=== PATIENT | male | born 1980 | race Caucasian/White ===

== ENCOUNTER 2016-11-19 07:36 | Emergency (ER) | payer SELFPAY ==
[~2016-11-19] VITALS: Ht 177.8 cm; Wt 100.0 kg
[2016-11-19 07:56] LABS: GLUCOSE,POINT OF CARE 74 MG/DL (70-110)
[2016-11-19 08:29] LABS: ANION GAP 18 mmol/L (8-16); BASOPHILS % (AUTO) 0.5 % (0.0-2.0); CALCIUM, TOTAL 8.3 mg/dL (8.8-10.5); CARBON DIOXIDE 22 mmol/L (22-29); CHLORIDE 104 mmol/L (98-107); CREATININE 0.99 mg/dL (0.60-1.30); EOSINOPHILS % (AUTO) 0.5 % (1.0-6.0); GLOMERULAR FILTR. RATE CALC > 60 mL/min (>60); HEMATOCRIT 49.7 % (41-53); HEMOGLOBIN 16.4 g/dL (13.5-17.5); LYMPHOCYTES # (AUTO) 2.6 K/uL (1.0-4.8); LYMPHOCYTES % (AUTO) 39.6 % (22.0-44.0); MEAN CORPUSCULAR HEMOGLOBIN 28.7 pg (26.0-34.0); MEAN CORPUSCULAR VOLUME 87 fL (80-100); MONOCYTES # (AUTO) 0.6 K/uL (0.1-1.0); NEUTROPHILS # (AUTO) 3.3 K/uL (1.8-7.7); NEUTROPHILS % (AUTO) 50.4 % (40.0-70.0); PLATELET COUNT (AUTO) 203 K/uL (150-450); POTASSIUM 3.8 mmol/L (3.5-5.1); RED BLOOD CELL COUNT(AUTO) 5.72 MIL/uL (4.50-5.90); RED CELL DISTRIBUTION WIDTH 12.8 % (11.5-14.5); SODIUM SERUM 144 mmol/L (136-145); UREA NITROGEN, BLOOD 8 mg/dL (7-18); WHITE BLOOD COUNT (AUTO) 6.5 K/uL (4.5-11.0)
[2016-11-19 08:34] LABS: ALANINE AMINOTRANSFERASE 134 U/L (12-78); ALBUMIN 4.3 g/dL (3.4-5.0); ASPARTATE AMINOTRANSFERASE 105 U/L (15-37); BILIRUBIN,TOTAL 0.6 mg/dL (0.1-1.0); TOTAL PROTEIN, SERUM 8.4 g/dL (6.4-8.2)
[2016-11-19] MEDS ORDERED: DiphenhydrAMINE HCL 50 MG/ML VIAL IM ONE (09:15)
[2016-11-19] MEDS ORDERED: HALOPERIDOL LACTATE 5 MG/ML VIAL IM ONE (09:15)
[2016-11-19] MEDS ORDERED: LORazepam 2 MG/ML VIAL IM ONE (09:15)
[2016-11-19 20:51] VITALS: BP 134/76
== END 2016-11-19 21:14 | disposition home or self-care (01) ==
LOC: EMS 07:38 → EEVIPCON 07:38 → EMS 21:14
DX: S09.90XA Unspecified injury of head, initial encounter (principal); T51.0X1A Toxic effect of ethanol, accidental (unintentional), initial encounter; R45.851 Suicidal ideations
CPT/HCPCS: 36415; 70450; 80053; 80307; 82962; 85025; 96372; 99291; G0480; J1200; J1630; J2060

== ENCOUNTER 2018-01-19 18:52 | Emergency (ER) | payer OTHER ==
[~2018-01-19] VITALS: Ht 182.9 cm; Wt 106.8 kg
[2018-01-19 19:12] LABS: GLUCOSE,POINT OF CARE 87 MG/DL (70-110)
[2018-01-19 21:22] LABS: EOSINOPHILS % (AUTO) 7.6 % (1.0-6.0); HEMATOCRIT 40.8 % (41-53); HEMOGLOBIN 13.8 g/dL (13.5-17.5); LYMPHOCYTES # (AUTO) 2.4 K/uL (1.0-4.8); LYMPHOCYTES % (AUTO) 39.6 % (22.0-44.0); MEAN CORPUSCULAR HEMOGLOBIN 31.3 pg (26.0-34.0); MEAN CORPUSCULAR HGB CONC 33.9 G/dL (31.0-37.0); MEAN CORPUSCULAR VOLUME 92 fL (80-100); MONOCYTES # (AUTO) 0.7 K/uL (0.1-1.0); NEUTROPHILS # (AUTO) 2.3 K/uL (1.8-7.7); NEUTROPHILS % (AUTO) 37.8 % (40.0-70.0); PLATELET COUNT (AUTO) 224 K/uL (150-450); RED BLOOD CELL COUNT(AUTO) 4.42 MIL/uL (4.50-5.90); RED CELL DISTRIBUTION WIDTH 14.8 % (11.5-14.5)
[2018-01-19] MEDS ORDERED: LIB10 PO (21:23)
[2018-01-19] MEDS ORDERED: GABA-529 PO (21:23)
[2018-01-19 21:33] LABS: ANION GAP 11 mmol/L (8-16); CALCIUM, TOTAL 8.5 mg/dL (8.8-10.5); CARBON DIOXIDE 27 mmol/L (22-29); CHLORIDE 107 mmol/L (98-107); CREATININE 0.84 mg/dL (0.60-1.30); GLOMERULAR FILTR. RATE CALC > 60 mL/min (>60); GLUCOSE,RANDOM 114 mg/dL (70-110); POTASSIUM 3.4 mmol/L (3.5-5.1); SODIUM SERUM 145 mmol/L (136-145); UREA NITROGEN, BLOOD 9 mg/dL (7-18)
[2018-01-19 21:38] LABS: ALANINE AMINOTRANSFERASE 124 U/L (12-78); ALBUMIN 3.4 g/dL (3.4-5.0); ALKALINE PHOSPHATASE 98 U/L (46-116); ASPARTATE AMINOTRANSFERASE 179 U/L (15-37); BILIRUBIN,TOTAL 0.6 mg/dL (0.1-1.0); TOTAL PROTEIN, SERUM 7.3 g/dL (6.4-8.2)
[2018-01-20] MEDS ORDERED: ChlordiazePOXIDE HCL 25 MG CAPSULE PO ONE (05:15)
[2018-01-20 08:00] VITALS: BP 132/74
== END 2018-01-20 08:05 | disposition home or self-care (01) ==
LOC: EMS 18:53
DX: F10.129 Alcohol abuse with intoxication, unspecified (principal); R74.0 Nonspecific elevation of levels of transaminase and lactic acid dehydrogenase [LDH]; R73.09 Other abnormal glucose; F32.9 Major depressive disorder, single episode, unspecified
CPT/HCPCS: 36415; 70450; 80053; 82962; 85025; 99285; G0480

== ENCOUNTER 2019-10-16 14:40 | Inpatient (IN) | payer MEDICAID ==
[~2019-10-16] VITALS: Ht 177.8 cm; Wt 132.4 kg
[~2019-10-16 14:40] MED LIST: DIVA-76 PO; GABA-529 PO
[2019-10-16 16:00] VITALS: BP 122/84
[2019-10-16] MEDS ORDERED: ZOLPIDEM TARTRATE 10 MG TABLET PO PRN (16:45)
[2019-10-16] MEDS ORDERED: MAG HYDROX/AL HYDROX/SIMETH ES 30 ML SUSPENSION UDCUP PO PRN (16:45)
[2019-10-16] MEDS ORDERED: TUBERCULIN, PURIFIED PROTEIN DERIVATIVE 5 TU/0.1 ML SYRINGE ID ONE (16:45)
[2019-10-16] MEDS ORDERED: DIAZEPAM 10 MG TABLET PO ONE (16:45)
[2019-10-16] MEDS ORDERED: CYANOCOBALAMIN 1,000 MCG/ML VIAL IM ONE (16:45)
[2019-10-16] MEDS ORDERED: LOPERAMIDE HCL 2 MG CAPSULE PO PRN (16:45)
[2019-10-16] MEDS ORDERED: MAGNESIUM HYDROXIDE SUSPENSION 30 ML UDCUP PO PRN (16:45)
[2019-10-16 17:00] VITALS: BP 128/82
[2019-10-16 18:00] VITALS: BP 126/77
[2019-10-16] MEDS: THIAMINE HCL 100 MG TABLET PO SCH (18:08)
[2019-10-16 19:00] VITALS: BP 122/68
[2019-10-16 20:00] VITALS: BP 111/61
[2019-10-16] MEDS: GABAPENTIN 300 MG CAPSULE PO SCH (20:37)
[2019-10-16] MEDS: DIVALPROEX SODIUM 500 MG ER TABLET PO SCH (20:37)
[2019-10-16] MEDS: BACLOFEN 10 MG TABLET PO SCH (20:37)
[2019-10-17] VITALS (9 sets, daily range): BP systolic 112–137; BP diastolic 62–86
[2019-10-17] MEDS: DIAZEPAM 10 MG TABLET PO PRN ×3 (00:51→10:19)
[2019-10-17 07:44] LABS: BASOPHILS % (AUTO) 0.9 % (0.0-2.0); EOSINOPHILS % (AUTO) 5.3 % (1.0-6.0); HEMATOCRIT 42.7 % (41-53); HEMOGLOBIN 14.8 g/dL (13.5-17.5); LYMPHOCYTES # (AUTO) 2.2 K/uL (1.0-4.8); LYMPHOCYTES % (AUTO) 31.7 % (22.0-44.0); MEAN CORPUSCULAR HEMOGLOBIN 28.9 pg (26.0-34.0); MEAN CORPUSCULAR HGB CONC 34.6 G/dL (31.0-37.0); MEAN CORPUSCULAR VOLUME 84 fL (80-100); MONOCYTES # (AUTO) 0.6 K/uL (0.1-1.0); MONOCYTES % (AUTO) 9.1 % (2.0-9.0); NEUTROPHILS # (AUTO) 3.7 K/uL (1.8-7.7); PLATELET COUNT (AUTO) 153 K/uL (150-450); RED BLOOD CELL COUNT(AUTO) 5.11 MIL/uL (4.50-5.90); RED CELL DISTRIBUTION WIDTH 12.7 % (11.5-14.5)
[2019-10-17 08:02] LABS: HEMOGLOBIN A1C 5.9 % (4.5-6.2)
[2019-10-17 08:12] LABS: ALANINE AMINOTRANSFERASE 67 U/L (12-78); ALBUMIN 3.7 g/dL (3.4-5.0); ALKALINE PHOSPHATASE 84 U/L (46-116); ANION GAP 5 mmol/L (8-16); ASPARTATE AMINOTRANSFERASE 75 U/L (15-37); BILIRUBIN,TOTAL 1.3 mg/dL (0.1-1.0); CALCIUM, TOTAL 9.1 mg/dL (8.8-10.5); CARBON DIOXIDE 32 mmol/L (22-29); CHLORIDE 99 mmol/L (98-107); CHOL/HDL RATIO 4.5 (4.2-7.3); CHOLESTEROL 154 mg/dL (131-200); CREATININE 0.99 mg/dL (0.60-1.30); FREE T4 (FREE THYROXINE) 1.02 ng/dL (0.76-1.46); GLOMERULAR FILTR. RATE CALC > 60 mL/min (>60); GLUCOSE,RANDOM 105 mg/dL (70-110); HDL CHOLESTEROL 34 mg/dL (40-60); LDL CHOL (CALC.) 80 mg/dL (0-130); POTASSIUM 4.1 mmol/L (3.5-5.1); SODIUM SERUM 136 mmol/L (136-145); THYROID STIMULATING HORMONE 2.41 uIU/mL (0.36-3.74); TOTAL PROTEIN, SERUM 7.9 g/dL (6.4-8.2); TRIGLYCERIDES 201 mg/dL (15-150); UREA NITROGEN, BLOOD 14 mg/dL (7-18)
[2019-10-17] MEDS: NALTREXONE HCL 50 MG TABLET PO SCH (08:31)
[2019-10-17] MEDS: AmLODIPine BESYLATE 10 MG TABLET PO SCH (08:34)
[2019-10-17] MEDS: GABAPENTIN 300 MG CAPSULE PO SCH ×3 (08:34→16:21)
[2019-10-17] MEDS: DIAZEPAM 10 MG TABLET PO SCH ×4 (08:35→20:11)
[2019-10-17] MEDS: FOLIC ACID 1 MG TABLET PO SCH (08:35)
[2019-10-17] MEDS: BACLOFEN 10 MG TABLET PO SCH ×3 (08:35→16:20)
[2019-10-17] MEDS: LISINOPRIL 10 MG TABLET PO SCH (08:35)
[2019-10-17] MEDS: MULTIVITAMINS WITH MINERALS, THERAPEUTIC TABLET PO SCH (08:35)
[2019-10-17] MEDS: THIAMINE HCL 100 MG TABLET PO SCH ×2 (08:35→16:21)
[2019-10-17] MEDS: OLANZapine 5 MG RAPDIS TABLET PO PRN ×2 (08:35→13:46)
[2019-10-17] MEDS: HydrOXYzine PAMOATE 50 MG CAPSULE PO PRN (08:40)
[2019-10-17] MEDS: PROMETHAZINE HCL 25 MG TABLET PO PRN ×2 (08:40→13:46)
[2019-10-17] MEDS ORDERED: DULoxetine HCL 20 MG CAPSULE PO SCH (09:00)
[2019-10-17] MEDS: IBUPROFEN 600 MG TABLET PO PRN (13:45)
[2019-10-17] MEDS: DIVALPROEX SODIUM 500 MG ER TABLET PO SCH (20:11)
[2019-10-17] MEDS: GABAPENTIN 400 MG CAPSULE PO SCH (20:11)
[2019-10-18] VITALS (8 sets, daily range): BP systolic 127–141; BP diastolic 77–98
[2019-10-18] MEDS: IBUPROFEN 600 MG TABLET PO PRN ×2 (03:55→14:16)
[2019-10-18] MEDS: DIAZEPAM 10 MG TABLET PO PRN (04:04)
[2019-10-18] MEDS: GABAPENTIN 400 MG CAPSULE PO SCH ×4 (08:19→20:41)
[2019-10-18] MEDS: LISINOPRIL 10 MG TABLET PO SCH (08:19)
[2019-10-18] MEDS: HydrOXYzine PAMOATE 50 MG CAPSULE PO PRN ×2 (08:19→19:11)
[2019-10-18] MEDS: MULTIVITAMINS WITH MINERALS, THERAPEUTIC TABLET PO SCH (08:19)
[2019-10-18] MEDS: DIAZEPAM 10 MG TABLET PO SCH ×4 (08:19→20:41)
[2019-10-18] MEDS: AmLODIPine BESYLATE 10 MG TABLET PO SCH (08:19)
[2019-10-18] MEDS: THIAMINE HCL 100 MG TABLET PO SCH ×2 (08:19→16:43)
[2019-10-18] MEDS: OLANZapine 5 MG RAPDIS TABLET PO PRN ×2 (08:19→19:11)
[2019-10-18] MEDS: BACLOFEN 10 MG TABLET PO SCH ×3 (08:20→16:43)
[2019-10-18] MEDS: FOLIC ACID 1 MG TABLET PO SCH (08:20)
[2019-10-18] MEDS: NALTREXONE HCL 50 MG TABLET PO SCH (08:21)
[2019-10-18] MEDS ORDERED: PARoxetine HCL 20 MG TABLET PO SCH (09:00)
[2019-10-18] MEDS: NICOTINE 21 MG/24 HOUR PATCH TD SCH (10:57)
[2019-10-18] MEDS: GuaiFENesin/D-METHORPHAN [SUGAR-FREE] 200-20MG/10 ML SYRUP UDCUP PO PRN ×2 (13:02→13:03)
[2019-10-18] MEDS: DIVALPROEX SODIUM 500 MG ER TABLET PO SCH (20:41)
[2019-10-19 06:16] VITALS: BP 130/75
[2019-10-19] MEDS ORDERED: DIAZEPAM 5 MG TABLET PO PRN (07:00)
[2019-10-19 08:08] VITALS: BP 151/104
[2019-10-19] MEDS: BACLOFEN 10 MG TABLET PO SCH ×3 (08:12→16:47)
[2019-10-19] MEDS: FOLIC ACID 1 MG TABLET PO SCH (08:12)
[2019-10-19] MEDS: AmLODIPine BESYLATE 10 MG TABLET PO SCH (08:13)
[2019-10-19] MEDS: GABAPENTIN 400 MG CAPSULE PO SCH ×3 (08:13→16:47)
[2019-10-19] MEDS: PARoxetine HCL 20 MG TABLET PO SCH (08:14)
[2019-10-19] MEDS: MULTIVITAMINS WITH MINERALS, THERAPEUTIC TABLET PO SCH (08:14)
[2019-10-19] MEDS: NALTREXONE HCL 50 MG TABLET PO SCH (08:14)
[2019-10-19] MEDS: LISINOPRIL 10 MG TABLET PO SCH (08:15)
[2019-10-19] MEDS: THIAMINE HCL 100 MG TABLET PO SCH ×2 (08:15→16:47)
[2019-10-19] MEDS: NICOTINE 21 MG/24 HOUR PATCH TD SCH (08:18)
[2019-10-19] MEDS: DIAZEPAM 5 MG TABLET PO SCH ×4 (08:18→20:10)
[2019-10-19 08:48] VITALS: BP 132/70
[2019-10-19] MEDS ORDERED: DIAZEPAM 10 MG TABLET ONE (09:21)
[2019-10-19] MEDS: GuaiFENesin/D-METHORPHAN [SUGAR-FREE] 200-20MG/10 ML SYRUP UDCUP PO PRN (09:47)
[2019-10-19] MEDS: IBUPROFEN 600 MG TABLET PO PRN ×2 (09:54→16:22)
[2019-10-19 09:58] VITALS: BP 152/86
[2019-10-19 16:18] VITALS: BP 149/92
[2019-10-19 16:44] VITALS: BP 149/92
[2019-10-19] MEDS ORDERED: LOPERAMIDE HCL 2 MG CAPSULE PO PRN (16:45)
[2019-10-19] MEDS: DIVALPROEX SODIUM 500 MG ER TABLET PO SCH (20:09)
[2019-10-19] MEDS: GABAPENTIN 300 MG CAPSULE PO SCH (20:09)
[2019-10-19] MEDS: MIRTAZAPINE 15 MG TABLET PO SCH (20:09)
[2019-10-19] MEDS: TOPIRAMATE 25 MG TABLET PO SCH (20:10)
[2019-10-20] VITALS (7 sets, daily range): BP systolic 134–170; BP diastolic 89–98
[2019-10-20] MEDS: PROMETHAZINE HCL 25 MG TABLET PO PRN (04:38)
[2019-10-20] MEDS: MULTIVITAMINS WITH MINERALS, THERAPEUTIC TABLET PO SCH (08:52)
[2019-10-20] MEDS: LISINOPRIL 10 MG TABLET PO SCH (08:52)
[2019-10-20] MEDS: THIAMINE HCL 100 MG TABLET PO SCH ×2 (08:53→16:21)
[2019-10-20] MEDS: AmLODIPine BESYLATE 10 MG TABLET PO SCH (08:53)
[2019-10-20] MEDS: DIAZEPAM 5 MG TABLET PO PRN ×2 (08:53→18:02)
[2019-10-20] MEDS: NALTREXONE HCL 50 MG TABLET PO SCH (08:54)
[2019-10-20] MEDS: FOLIC ACID 1 MG TABLET PO SCH (08:54)
[2019-10-20] MEDS: TOPIRAMATE 25 MG TABLET PO SCH ×4 (08:54→20:21)
[2019-10-20] MEDS: GABAPENTIN 300 MG CAPSULE PO SCH ×4 (08:54→20:21)
[2019-10-20] MEDS: NICOTINE 21 MG/24 HOUR PATCH TD SCH (08:55)
[2019-10-20] MEDS: PARoxetine HCL 20 MG TABLET PO SCH (08:56)
[2019-10-20] MEDS: BACLOFEN 10 MG TABLET PO SCH ×3 (09:02→16:20)
[2019-10-20] MEDS: IBUPROFEN 600 MG TABLET PO PRN ×2 (09:02→20:51)
[2019-10-20] MEDS: MIRTAZAPINE 15 MG TABLET PO SCH (20:20)
[2019-10-20] MEDS: DIVALPROEX SODIUM 500 MG ER TABLET PO SCH (20:21)
[2019-10-21 05:25] VITALS: BP 137/93
[2019-10-21] MEDS: BACLOFEN 10 MG TABLET PO SCH ×3 (08:15→16:34)
[2019-10-21] MEDS: TOPIRAMATE 25 MG TABLET PO SCH ×4 (08:20→20:20)
[2019-10-21] MEDS: HydrOXYzine PAMOATE 50 MG CAPSULE PO PRN ×2 (08:20→16:33)
[2019-10-21] MEDS: GABAPENTIN 300 MG CAPSULE PO SCH ×4 (08:20→20:21)
[2019-10-21] MEDS: OLANZapine 5 MG RAPDIS TABLET PO PRN (08:20)
[2019-10-21] MEDS: NICOTINE 21 MG/24 HOUR PATCH TD SCH (08:22)
[2019-10-21] MEDS: MULTIVITAMINS WITH MINERALS, THERAPEUTIC TABLET PO SCH (08:22)
[2019-10-21] MEDS: THIAMINE HCL 100 MG TABLET PO SCH ×2 (08:22→16:33)
[2019-10-21] MEDS: NALTREXONE HCL 50 MG TABLET PO SCH (08:23)
[2019-10-21] MEDS: AmLODIPine BESYLATE 10 MG TABLET PO SCH (08:24)
[2019-10-21] MEDS: PARoxetine HCL 20 MG TABLET PO SCH (08:24)
[2019-10-21] MEDS: FOLIC ACID 1 MG TABLET PO SCH (08:25)
[2019-10-21] MEDS: LISINOPRIL 10 MG TABLET PO SCH (08:25)
[2019-10-21] MEDS: IBUPROFEN 600 MG TABLET PO PRN ×2 (08:41→16:33)
[2019-10-21 08:42] VITALS: BP 151/105
[2019-10-21 09:00] VITALS: BP 151/100
[2019-10-21 10:15] VITALS: BP 138/87
[2019-10-21 16:00] VITALS: BP 123/88
[2019-10-21] MEDS: DIVALPROEX SODIUM 500 MG ER TABLET PO SCH (20:20)
[2019-10-21] MEDS: MIRTAZAPINE 15 MG TABLET PO SCH (20:20)
[2019-10-21] MEDS: GuaiFENesin/D-METHORPHAN [SUGAR-FREE] 200-20MG/10 ML SYRUP UDCUP PO PRN (21:55)
[2019-10-22 08:00] VITALS: BP 157/101
[2019-10-22] MEDS: BACLOFEN 10 MG TABLET PO SCH ×3 (08:24→16:09)
[2019-10-22] MEDS: NICOTINE 21 MG/24 HOUR PATCH TD SCH (08:25)
[2019-10-22] MEDS: THIAMINE HCL 100 MG TABLET PO SCH ×2 (08:25→16:10)
[2019-10-22] MEDS: LISINOPRIL 10 MG TABLET PO SCH (08:25)
[2019-10-22] MEDS: AmLODIPine BESYLATE 10 MG TABLET PO SCH (08:25)
[2019-10-22] MEDS: NALTREXONE HCL 50 MG TABLET PO SCH (08:25)
[2019-10-22] MEDS: MULTIVITAMINS WITH MINERALS, THERAPEUTIC TABLET PO SCH (08:25)
[2019-10-22] MEDS: PARoxetine HCL 20 MG TABLET PO SCH (08:26)
[2019-10-22] MEDS: FOLIC ACID 1 MG TABLET PO SCH (08:26)
[2019-10-22] MEDS: GABAPENTIN 300 MG CAPSULE PO SCH ×4 (08:27→20:06)
[2019-10-22] MEDS: TOPIRAMATE 25 MG TABLET PO SCH ×4 (08:27→20:06)
[2019-10-22 09:46] VITALS: BP 157/101
[2019-10-22] MEDS: IBUPROFEN 600 MG TABLET PO PRN ×2 (09:46→20:08)
[2019-10-22] MEDS: OLANZapine 5 MG RAPDIS TABLET PO PRN ×2 (10:36→21:57)
[2019-10-22 16:51] VITALS: BP 149/78
[2019-10-22] MEDS: DIVALPROEX SODIUM 500 MG ER TABLET PO SCH (20:06)
[2019-10-22] MEDS: MIRTAZAPINE 15 MG TABLET PO SCH (20:06)
[2019-10-22 20:10] VITALS: BP 147/75
[2019-10-22] MEDS ORDERED: PROPRANOLOL HCL 20 MG TABLET PO SCH (21:00)
[2019-10-23 04:19] VITALS: BP 145/79
[2019-10-23] MEDS: OLANZapine 5 MG RAPDIS TABLET PO PRN (06:20)
[2019-10-23] MEDS: IBUPROFEN 600 MG TABLET PO PRN ×2 (07:12→07:13)
[2019-10-23] MEDS: TOPIRAMATE 25 MG TABLET PO SCH ×3 (08:24→17:50)
[2019-10-23] MEDS: NALTREXONE HCL 50 MG TABLET PO SCH (08:25)
[2019-10-23] MEDS: NICOTINE 21 MG/24 HOUR PATCH TD SCH (08:25)
[2019-10-23] MEDS: MULTIVITAMINS WITH MINERALS, THERAPEUTIC TABLET PO SCH (08:25)
[2019-10-23] MEDS: FOLIC ACID 1 MG TABLET PO SCH (08:25)
[2019-10-23] MEDS: BACLOFEN 10 MG TABLET PO SCH ×3 (08:25→17:48)
[2019-10-23] MEDS: PARoxetine HCL 20 MG TABLET PO SCH (08:25)
[2019-10-23] MEDS: THIAMINE HCL 100 MG TABLET PO SCH ×2 (08:25→17:50)
[2019-10-23] MEDS: GABAPENTIN 300 MG CAPSULE PO SCH ×3 (08:25→17:49)
[2019-10-23 08:34] VITALS: BP 160/113
[2019-10-23] MEDS ORDERED: AmLODIPine BESYLATE 10 MG TABLET PO SCH (09:00)
[2019-10-23] MEDS ORDERED: LISINOPRIL 10 MG TABLET PO SCH (09:00)
[2019-10-23 16:53] VITALS: BP 140/84
[2019-10-23] MEDS ORDERED: GABA-531 PO (17:25)
[2019-10-23] MEDS ORDERED: NALT50TA PO (17:25)
[2019-10-23] MEDS ORDERED: DIVA500T52 PO (17:25)
[2019-10-23] MEDS ORDERED: PARO-37 PO (17:25)
[2019-10-23] MEDS ORDERED: MIRT15TA6 PO (17:25)
[2019-10-23] MEDS ORDERED: PROP20TA96 PO (17:25)
[2019-10-23] MEDS ORDERED: TOPI25 PO (17:25)
[2019-10-23] MEDS ORDERED: BACL10TA PO (18:11)
[2019-10-23] MEDS ORDERED: PROP20TA18 PO (18:13)
[2019-10-23] MEDS ORDERED: LISI-662 PO (18:14)
[2019-10-23] MEDS ORDERED: AMLO5TAB66 PO (18:15)
== END 2019-10-23 19:00 | disposition home or self-care (01) | DRG 885 ==
LOC: 3EC 16:38 → 3EI 10-19 22:07
PROVIDERS: ADMIT Psychiatry & Neurology Psychiatry; ATTEND Psychiatry & Neurology Psychiatry
DX: F33.2 Major depressive disorder, recurrent severe without psychotic features (principal); R45.851 Suicidal ideations; F12.90 Cannabis use, unspecified, uncomplicated; F17.210 Nicotine dependence, cigarettes, uncomplicated; F41.0 Panic disorder [episodic paroxysmal anxiety]; F43.10 Post-traumatic stress disorder, unspecified; G40.409 Other generalized epilepsy and epileptic syndromes, not intractable, without status epilepticus; G43.909 Migraine, unspecified, not intractable, without status migrainosus; I10 Essential (primary) hypertension; Z91.19 Patient's noncompliance with other medical treatment and regimen; Z72.820 Sleep deprivation; S70.02XA Contusion of left hip, initial encounter; X58.XXXA Exposure to other specified factors, initial encounter; Y93.89 Activity, other specified; Y92.89 Other specified places as the place of occurrence of the external cause; Y99.8 Other external cause status
CPT/HCPCS: 83036; 84439; 84443; 86592; 93005; 95816; J3420